=== PATIENT | male | born 1945 | race Caucasian/White ===

== ENCOUNTER 2017-08-29 16:24 | Emergency (ER) | payer MEDICARE, BC ==
[2010-11-10 12:00] VITALS: BMI 25.9
[2017-08-29 17:11] LABS: BASOPHILS 0.5 % (0-2); EOSINOPHILS 3.5 % (0-7); HEMATOCRIT 39.6 % (42.0-54.0); HEMOGLOBIN 13.7 g/dL (13.5-17.5); IMMATURE GRANULOCYTES 0.2 % (0-5); LYMPHOCYTES 22.4 % (15-50); MCH 31.7 pg (26.0-34.0); MCHC 34.6 g/dL (31.0-37.0); MCV 91.7 fL (80.0-100.0); MEAN PLATELET VOLUME 11.5 fL (7.4-10.4); MONOCYTES 8.3 % (2-11); NEUTROPHILS 65.1 % (40-80); PLATELET COUNT 211 10x3/uL (130-400); RBC 4.32 10x6/uL (4.20-6.10); WBC 8.1 10x3/uL (4.8-10.8)
[2017-08-29 17:36] LABS: ALBUMIN 3.4 g/dL (3.4-5.0); ANION GAP 12.2 mmol/L (8-16); BILIRUBIN - TOTAL 0.4 mg/dL (0.2-1.3); CARBON DIOXIDE 26.5 mmol/L (21.0-32.0); CREATININE - SERUM 1.5 mg/dL (0.6-1.3); POTASSIUM - SERUM 3.7 mmol/L (3.5-5.1); PROTEIN - SERUM 6.7 g/dL (6.4-8.2)
[2017-08-29 18:00] LABS: APPEARANCE HAZY (CLEAR); BILIRUBIN NEGATIVE (NEGATIVE); COLOR YELLOW (YELLOW); GLUCOSE NEGATIVE (NEGATIVE); KETONE NEGATIVE (NEGATIVE); NITRITE NEGATIVE (NEGATIVE); PROTEIN NEGATIVE (NEGATIVE); SPECIFIC GRAVITY 1.015 (1.005-1.020); UROBILINOGEN NORMAL (NORMAL)
[2017-08-29 18:03] LABS: AMORPHOUS SEDIMENT <1+ /lpf (NONE SEEN)
[2017-08-29 18:04] LABS: WHITE CELLS - URINE RARE /hpf (0-5)
== END 2017-08-29 18:58 | disposition home or self-care (01) ==
LOC: D.ER 16:24
PROVIDERS: Emergency Medicine; Physician Assistant
DX: R10.9 Unspecified abdominal pain (principal); R93.5 Abnormal findings on diagnostic imaging of other abdominal regions, including retroperitoneum

== ENCOUNTER 2020-04-04 07:03 | Day surgery (SDC) | payer MEDICARE, BC ==
[~2020-04-04] VITALS: Ht 175.3 cm; Wt 77.3 kg
--- NOTE | ~2020-04-04 | OP ---
PATIENT NAME: ANTHONY NOVA MEDICAL RECORD: [id number] :47 LOCATION:D.OPS ADMISSION DATE: SURGEON: JOAQUÍN LUNA DO DATE OF OPERATION: 04/04/2020 PROCEDURE: Colonoscopy with polypectomy. INDICATIONS FOR PROCEDURE: 1. History of colon polyps. The patient's last colonoscopy was in 2017. 2. Family history of colon cancer in the patient's mother. 3. History of diverticulosis. SCOPE: Olympus video pediatric colonoscope. MEDICATIONS: Propofol 250 mg IV per anesthesia. WITHDRAWAL TIME: 8 minutes. ESTIMATED BLOOD LOSS: Minimal. COMPLICATIONS: None. FINDINGS AND DESCRIPTION OF PROCEDURE: Informed consent was given. The patient was made comfortable with the above medication. After reaching an adequate level of sedation by slow IV push, the patient was placed on his left side. A digital rectal examination was performed and revealed some prostatic hyperplasia. The endoscope was advanced under direct visualization through the rectum to the cecum and the terminal ileum. The endoscope was slowly withdrawn. Mucosa was carefully examined. The prep quality was good. There was a single benign-appearing sessile polyp located in the ascending colon that was approximately 3-mm in diameter. It was removed using cold forceps. There was evidence of mild diverticulosis involving the sigmoid colon. Retroflexion was performed in the rectum with a normal-appearing rectal wall. The endoscope was withdrawn from the patient. The patient tolerated the procedure well and there were no complications. IMPRESSION: 1. A single benign-appearing ascending colon polyp, which was removed using cold forceps. 2. Mild diverticulosis of the sigmoid colon. PLAN AND RECOMMENDATIONS: 1. Discharge home when recovery parameters are met. 2. Follow up biopsy specimen results. 3. High fiber diet. 4. Continue current medications. 5. Consider recall colonoscopy in 5 years. 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
[2020-04-04 07:24] LABS: HEMOGLOBIN 15.5 g/dL (13.5-17.5); MCH 30.3 pg (26.0-34.0); MEAN PLATELET VOLUME 11.4 fL (7.4-10.4); RBC 5.11 10x6/uL (4.20-6.10); WBC 8.7 10x3/uL (4.8-10.8)
[2020-04-04 07:32] LABS: POTASSIUM - SERUM 4.1 mmol/L (3.5-5.1)
[2020-04-04 08:29] LABS: ANION GAP 14.1 mmol/L (8-16); CALCIUM 9.5 mg/dL (8.5-10.1); CREATININE - SERUM 1.3 mg/dL (0.6-1.3)
[2020-04-04 08:42] VITALS: BP 139/85; Ht 175.3 cm; Wt 77.3 kg
[2020-04-04] MEDS ORDERED: ELIQUIS5 MG PO (08:57)
[2020-04-04] MEDS ORDERED: LIPITOR10 MG (08:58)
[2020-04-04] MEDS ORDERED: BISOPROLOL-HCT1 EAC1 PO ×2 (08:59)
[2020-04-04] MEDS ORDERED: COZAAR50 MG (09:00)
[2020-04-04] MEDS ORDERED: FENOFIBRATE134 MG PO (09:00)
[2020-04-04] MEDS ORDERED: BAYER CHEWABLE81 MG PO (09:01)
[2020-04-04] MEDS ORDERED: PROTONIX40 MG (09:01)
[2020-04-04] MEDS ORDERED: PROBIOTIC1 EAC1 PO ×2 (09:02→09:03)
--- NOTE | 2020-04-04 10:17 | NUR ---
1000-RECD TO ROOM FROM GI LAB. ALERT. IV PATENT. NOTIFIED OF EXPECTED DISCHARGE TIME. 1010- VOISE IN TO REPORT FINDINGS.
--- NOTE | 2020-04-04 10:40 | NUR ---
1040-D/C HOME VIA WHEELCHAIR TO , KIRSTIN.
== END 2020-04-04 10:40 | disposition home or self-care (01) ==
LOC: D.OPS 07:03
PROVIDERS: Anesthesiology; ATTEND Internal Medicine Gastroenterology
DX: Z86.010 Personal history of colon polyps (principal); Z80.0 Family history of malignant neoplasm of digestive organs; K63.5 Polyp of colon; R12 Heartburn; R10.9 Unspecified abdominal pain; K57.30 Diverticulosis of large intestine without perforation or abscess without bleeding

== ENCOUNTER 2020-04-06 09:41 | Day surgery (SDC) | payer MEDICARE, BC ==
[~2020-04-06] VITALS: Ht 175.3 cm; Wt 77.7 kg
[~2020-04-06 09:41] MED LIST: BAYER CHEWABLE81 MG PO; BISOPROLOL-HCT1 EAC1 PO; COZAAR50 MG; ELIQUIS5 MG PO; FENOFIBRATE134 MG PO; LIPITOR10 MG; PROBIOTIC1 EAC1 PO; PROTONIX40 MG
[2020-04-06 10:14] LABS: HEMATOCRIT 43.9 % (42.0-54.0); HEMOGLOBIN 14.5 g/dL (13.5-17.5); MCH 30.7 pg (26.0-34.0); MEAN PLATELET VOLUME 11.9 fL (7.4-10.4); RBC 4.72 10x6/uL (4.20-6.10); RDW 12.8 % (11.5-14.5); WBC 8.2 10x3/uL (4.8-10.8)
[2020-04-06 10:22] VITALS: BP 137/78; Ht 175.3 cm; Wt 77.7 kg
[2020-04-06 10:39] LABS: INR 1.01 (0.85-1.17); PROTIME 13.2 SECONDS (11.6-15.0)
--- NOTE | 2020-04-06 13:25 | NUR ---
1245 RECIEVED PATIENT AWAKE AND ALERT 1250 PATIENT PROVIDED COFFEE WITH ARTIFICIAL SWEETNER. NO DIFFICULTY SWALLOWING PRESENT 1315 IV DISCONTINUED. NO C/O NAUSEA 1330 DISCHARGE INSTRUCTIONS PROVIDED
--- NOTE | 2020-04-06 14:29 | NUR ---
1415- HERE. D/C HOME VIA WHEELCHAIR.
--- NOTE | 2020-04-08 10:07 | OP ---
PATIENT NAME: ANTHONY NOVA MEDICAL RECORD: [id number] :47 LOCATION:[facility] ADMISSION DATE: SURGEON: JOAQUÍN LUNA DO DATE OF OPERATION: 04/06/2020 PROCEDURE: EGD with biopsies. INDICATIONS FOR PROCEDURE: Generalized abdominal pain and heartburn. SCOPE: Olympus video gastroscope. MEDICATIONS: Propofol 100 mg IV per anesthesia. ESTIMATED BLOOD LOSS: Minimal. COMPLICATIONS: None. FINDINGS: Informed consent was given. The patient was made comfortable with the above medication. After reaching an adequate level of sedation by slow IV push, the patient was placed on his left side. The endoscope was advanced under direct visualization through the mouth to the second portion of the duodenum with ease. The entire esophagus appeared normal down to the GE junction. At the GE junction, there were minor changes consistent with LA class A reflux-induced esophagitis. The endoscope was advanced beyond the GE junction into the stomach and retroflexed to view the cardia, where a small sliding hiatal hernia was present. The fundus of the stomach appeared normal. Throughout the body, antrum, and prepyloric region, there were changes of mild chronic gastritis consisting of erythema and granularity. Cold forceps biopsies were taken from the antrum and incisura to submit for histopathology and to rule out the presence of H. pylori. The endoscope was advanced beyond the pylorus into the duodenum, which appeared normal down to the second portion. The endoscope was withdrawn from the patient. The patient tolerated the procedure well and there were no complications. IMPRESSION: 1. LA class A reflux-induced esophagitis. 2. Small sliding hiatal hernia. 3. Gastritis. PLAN AND RECOMMENDATIONS: 1. Discharge home when recovery parameters are met. 2. Follow up biopsy specimen results. 3. GERD diet and reflux precautions. 4. Continue current medications. 5. Okay to use as needed antacids including Pepcid or PPI when symptoms flare up. The patient currently states that he feels good and has not had any issues over the past few weeks and has not required any antacid therapy. 6. Notify the GI clinic if symptoms worsen or fail to improve. TRANSINT:[id number] Voice Confirmation ID: [id number] DOCUMENT ID: [id number] OPERATIVE REPORT [id number] ANTHONY NOVA JOAQUÍN LUNA DO at 1007 CC: [id number] DICTATION DATE: 04/06/20 1243 [employer]: 04/06/20 1437 [facility] 04/06/20 [facility] [address] [place] [address]
== END 2020-04-06 14:15 | disposition home or self-care (01) ==
LOC: D.OPS 09:41
PROVIDERS: Anesthesiology; ATTEND Internal Medicine Gastroenterology
DX: R10.9 Unspecified abdominal pain (principal); R12 Heartburn; K21.0 Gastro-esophageal reflux disease with esophagitis; K29.70 Gastritis, unspecified, without bleeding; K44.9 Diaphragmatic hernia without obstruction or gangrene; K63.5 Polyp of colon; K57.30 Diverticulosis of large intestine without perforation or abscess without bleeding